=== PATIENT | female | born 1975 | race Caucasian/White ===

== ENCOUNTER → 2017-11-26 11:51 | Outpatient (CLI) | payer OTHER, SELFPAY ==
--- NOTE | 2017-11-26 | DI.MG.S_ITS ---
BILATERAL DIGITAL SCREENING MAMMOGRAM 3D/2D WITH CAD: 11/26/2017 CLINICAL: Baseline exam. Routine screening. Family history of breast cancer. No prior exams were available for comparison. The tissue of both breasts is heterogeneously dense. This may lower the sensitivity of mammography. Current study was also evaluated with a Computer Aided Detection (CAD) system. No significant masses, calcifications, or other findings are seen in either breast. IMPRESSION: NEGATIVE There is no mammographic evidence of malignancy. A 1 year screening mammogram is recommended. This exam was interpreted at Station ID: [id number]. NOTE: For mammograms, a report in lay terms will be sent to the patient. Approximately 15% of breast malignancies will not be visualized mammographically. In the management of a palpable breast mass, a negative mammogram must not discourage biopsy of a clinically suspicious lesion. Electronically Signed By: Regino carter/gary:11/26/2017 16:08:03 letter sent: Normal Exam ACR BI-RADS Category 1: Negative 3341F
== END ==
PROVIDERS: Family Provider Family Medicine; PCP Family Medicine; Visit Provider Family Medicine
DX: Z12.31 Encounter for screening mammogram for malignant neoplasm of breast (principal); Z80.3 Family history of malignant neoplasm of breast
CPT/HCPCS: 77063; 77067

== ENCOUNTER → 2018-12-03 07:39 | Outpatient (CLI) | payer OTHER, SELFPAY ==
--- NOTE | 2018-12-03 | DI.MG.S_ITS ---
BILATERAL DIGITAL SCREENING MAMMOGRAM 3D/2D WITH CAD: 12/03/2018 CLINICAL: Routine screening. Family history of breast cancer. Comparison is made to exam [facility] The tissue of both breasts is heterogeneously dense. This may lower the sensitivity of mammography. Current study was also evaluated with a Computer Aided Detection (CAD) system. No significant masses, calcifications, or other findings are seen in either breast. There has been no significant interval change. IMPRESSION: NEGATIVE There is no mammographic evidence of malignancy. A 1 year screening mammogram is recommended. This exam was interpreted at Station ID: [id number]. NOTE: For mammograms, a report in lay terms will be sent to the patient. Approximately 15% of breast malignancies will not be visualized mammographically. In the management of a palpable breast mass, a negative mammogram must not discourage biopsy of a clinically suspicious lesion. Electronically Signed By: Charli rosado/gary:12/03/2018 13:04:37 letter sent: Normal Exam ACR BI-RADS Category 1: Negative 3341F
== END ==
PROVIDERS: Family Provider Family Medicine; PCP Family Medicine; Visit Provider Family Medicine
DX: Z12.31 Encounter for screening mammogram for malignant neoplasm of breast (principal); Z80.3 Family history of malignant neoplasm of breast
CPT/HCPCS: 77063; 77067

== ENCOUNTER → 2019-02-17 16:35 | Outpatient (CLI) | payer OTHER, SELFPAY ==
--- NOTE | 2019-02-17 | DI.RAD.S_ITS ---
PROCEDURE: XR FOOT RT 2V INDICATIONS: RIGHT HEEL PAIN TECHNIQUE: 2 views of the foot were acquired. COMPARISON: [facility], , FOOT 3V LEFT, 10/24/2011, 9:56. FINDINGS: Bones: No fractures or dislocations. Unfused bipartite os navicular. Os perinei present. A small plantar calcaneal spur. No suspicious bony lesions. Soft tissues: No tibiotalar joint effusion. Achilles tendon appears normal. IMPRESSION: Small plantar calcaneal spur. Dictated by: Emily Peck M.D. on 02/17/2019 at 18:43 Approved by: Emily Peck M.D. on 02/17/2019 at 18:46
== END ==
PROVIDERS: Family Provider Family Medicine; PCP Family Medicine; Visit Provider Family Medicine
DX: M77.31 Calcaneal spur, right foot (principal)
CPT/HCPCS: 73620

== ENCOUNTER → 2020-01-05 14:46 | Outpatient (CLI) | payer OTHER, SELFPAY ==
--- NOTE | 2020-01-05 | DI.CT.S_ITS ---
PROCEDURE: CT CHEST WO CON INDICATIONS: PULMONARY NODULES ROUTINE SCREENING MAMMOGRAM TECHNIQUE: Noncontrast 5 mm thick sections acquired from the pulmonary apices to the posterior costophrenic angles. 1 mm lung window, 5 mm thick coronal and sagittal and 7 mm axial MIP reformats were then acquired. For radiation dose reduction, the following was used: automated exposure control, adjustment of mA and/or kV according to patient size. COMPARISON: [facility], , MM SCREENING MAMMO BI, 12/03/2018, 8:00. [facility], MM SCREENING MAMMO BI, 01/05/2020, 15:05. [facility], , MM SCREENING MAMMO BI, 11/26/2017, 12:22. Outside Facility, , CT THORAX WITH CONTRAST, 05/22/2018, 9:30. FINDINGS: Image quality: Excellent. Lungs and pleura: No acute air space opacities. Previously present small 4-6 mm nodules found within the right lower lung are again noted, and have not increased in size or number. No pleural effusions or pneumothorax. Central and peripheral airways are patent and normal in caliber. Mediastinum: Heart size is normal. No pericardial effusion. No mediastinal adenopathy by size criteria. Thoracic aorta and central pulmonary arteries are normal in size. Esophagus is normal in caliber. No hiatal hernia. Bones and chest wall: No suspicious bony lesions. No vertebral body compression fractures. No axillary or supraclavicular adenopathy by size criteria. Thyroid gland is not well seen by this noncontrast technique. Asymmetric left upper outer quadrant breast radiodensity has been previously present on CT scanning 05/22/18 and also on prior mammograms. A mammogram was obtained same day.. Abdomen: Visualized upper abdominal solid organs and bowel loops appear normal in the absence of contrast. IMPRESSION: 1. Scattered small benign appearing nodules within the right lower lung have not changed, no followup recommended. 2. Asymmetric left upper outer quadrant breast tissue has been previously present on CT scanning and mammographic imaging, and a mammogram was also obtained today. Please refer to report from that examination related to mammographic findings. Dictated by: Fabrizio Bunn M.D. on 01/05/2020 at 15:56 Approved by: Fabrizio Bunn M.D. on 01/05/2020 at 16:04
--- NOTE | 2020-01-05 | DI.MG.S_ITS ---
BILATERAL DIGITAL SCREENING MAMMOGRAM 3D/2D WITH CAD: 01/05/2020 CLINICAL: Routine screening. Family history of breast cancer. Comparison is made to exams dated: 12/03/2018 mammogram and 11/26/2017 mammogram - [facility]. The tissue of both breasts is heterogeneously dense. This may lower the sensitivity of mammography. Current study was also evaluated with a Computer Aided Detection (CAD) system. No significant masses, calcifications, or other findings are seen in either breast. There has been no significant interval change. IMPRESSION: NEGATIVE There is no mammographic evidence of malignancy. A 1 year screening mammogram is recommended. This exam was interpreted at Station ID: [id number]. NOTE: For mammograms, a report in lay terms will be sent to the patient. Approximately 15% of breast malignancies will not be visualized mammographically. In the management of a palpable breast mass, a negative mammogram must not discourage biopsy of a clinically suspicious lesion. Electronically Signed By: Charli rosado/gary:01/05/2020 16:37:52 letter sent: Normal Exam ACR BI-RADS Category 1: Negative 3341F
== END ==
PROVIDERS: Family Provider Family Medicine; PCP Family Medicine; Referring Provider Family Medicine; Visit Provider Family Medicine
DX: Z12.31 Encounter for screening mammogram for malignant neoplasm of breast (principal); Z80.3 Family history of malignant neoplasm of breast; R91.8 Other nonspecific abnormal finding of lung field
CPT/HCPCS: 71250; 77063; 77067

== ENCOUNTER → 2020-04-06 14:03 | Outpatient (CLI) | payer OTHER, SELFPAY ==
--- NOTE | 2020-04-06 | DI.CT.S_ITS ---
PROCEDURE: CT ABDOMEN PELVIS W CON INDICATIONS: UNSPECIFIED ABD PAIN TECHNIQUE: After the administration of oral and intravenous contrast, 5 mm thick sections acquired from the diaphragms to the symphysis. 5 mm thick coronal and sagittal reformats were performed. For radiation dose reduction, the following was used: automated exposure control, adjustment of mA and/or kV according to patient size. COMPARISON: [facility], CT, CT CHEST WO CON, 01/05/2020, 14:48. FINDINGS: Image quality: Excellent. ABDOMEN: Lung bases: Lung bases are clear. Heart size is normal. Solid organs: Liver is normal in size and enhancement. Gallbladder is unremarkable . Biliary system is non-dilated. Pancreas enhances normally. Spleen is normal in size and enhancement. No adrenal nodules. There are multiple regions of bilateral renal cortical scarring suggesting prior infarct or infection. No hydronephrosis. A 2 mm nonobstructing calculus is present in the right midpole. Peritoneum and bowel: Stomach, small bowel, and colon loops are normal in caliber and wall thickness. The appendix is thin walled and gas filled. No free fluid or air. Nodes and vessels: No retroperitoneal or mesenteric adenopathy. Aorta and inferior vena cava are normal in caliber. Miscellaneous: No ventral hernias. PELVIS: Genitourinary: Bladder wall thickness is normal. The uterus and right ovary are unremarkable. There is a 2.1 cm in diameter low-density left ovarian cystic lesion which is within physiologic limits in a premenopausal female. Miscellaneous: No inguinal hernias or adenopathy. Bones: No suspicious bony lesions. No vertebral body compression fractures. IMPRESSION: 1. No acute intra-abdominal findings. Normal appendix. 2. Bilateral renal scarring suggesting prior infarct or infection. Dictated by: Keira Mabry M.D. on 04/06/2020 at 16:31 Approved by: Keira Mabry M.D. on 04/06/2020 at 16:55
== END ==
PROVIDERS: Family Provider Family Medicine; PCP Family Medicine; Referring Provider Family Medicine; Visit Provider Family Medicine
DX: R10.9 Unspecified abdominal pain (principal)
CPT/HCPCS: 74177; Q9967

== ENCOUNTER 2020-08-03 14:30 | Outpatient (RCR) | payer OTHER, SELFPAY ==
--- NOTE | 2020-05-18 16:43 | PT.OIE ---
Current Diagnoses Unspecified abdominal pain (05/16/20) Visit Care Team Role Provider Type Song Espinal MD Attending Provider Physician Family Provider Primary Care Provider Referring Provider Specialty: Family Practice Address: [address] [place] [address] [place], [facility] Email: [email or web address] Physical Therapy Initial Evaluation PT-OP-A Visit Information Start: 05/16/20 16:11 Freq: Status: Active Protocol: Document 05/16/20 18:09 [facility] (Rec: 05/16/20 18:09 [facility] [id number]) Out-Patient Physical Therapy Visit Information Visit Information Visit Type Initial Evaluation Visit Start Time 16:00 Visit Stop Time 16:45 Total Visit Minutes 45 Visit Number 1 Evaluation Information Evaluation Date 05/16/20 PT-OP-B Current Condition Start: 05/16/20 16:11 Freq: Status: Active Protocol: Document 05/16/20 16:13 [facility] (Rec: 05/16/20 16:26 [facility] [id number]) Current Condition History of Current Condition Onset Date Two months ago Current Complaints Right sided pelvic and SI pain History of Current Condition Ary is a 44 year old female who started running at age 42. She started out with a 5 k but then began doing ultra marathons. A few months ago she started experiencing right sided SI joint pain. Pain can also be on the out side of her right hip. Symptoms are intermittent. Hx of right side plantar fasciatis, right side neck tightness and can have pain with cervical extension right. She was running 40-70 miles per week prior to her pain and now her average is usualy 30-40 miles per week. Works from home so sits in a chair, recently brought out her yoga pad during the day. She always feel her right quad right and sometimes notes pain into the right quadricep. PT-OP-C Subjective Start: 05/16/20 18:08 Freq: Status: Active Protocol: Document 05/16/20 16:00 [facility] (Rec: 05/18/20 16:37 [facility] [id number]) Patient Questionnaires Pelvic Pain and Urgency/Frequency Patient Symptom Scale Pelvic Pain Score 19 OP-PT Pain Assessment Pain Assessment Grid Paper Pain Assessment Grid Completed Yes Location right sided SI pain Pain Location Details right sided SI pain Intensity 6 Scale Used Numeric (0 - 10) Description Aching,Radiating Comments Pain Comments Pt notes pain begins in the right SI region but then wraps around anteriorly and down the front of her thigh as well asd referring pain downt he back of her leg to her calf PT-OP-F Manual Assessment Start: 05/16/20 18:08 Freq: Status: Active Protocol: Document 05/16/20 16:00 [facility] (Rec: 05/18/20 16:37 [facility] [id number]) Manual Assessments Soft Tissue Assessment Soft Tissue Mobility Assessment Right iliopsoas tightness and tightness into the right quadricpes, there is decreased muscle tone to palpation in the lumbar spine, atrophy of the multifidi Joint Mobility Assessment Joint Mobility Assessment + ASLR test while lifting the left leg, right iliacus outflared PT-OP-J Posture/Palpation/Skin Start: 05/16/20 18:08 Freq: Status: Active Protocol: Document 05/16/20 16:00 [facility] (Rec: 05/18/20 16:37 [facility] [id number]) Posture Evaluation Comments Posture Comments pt stands in a increased lordosis Palpation Assessment Location muscle atrophy of the lumbar multifidi Palpation Location lumbar multifidi Palpation Details muscle atrophy and boggyness of the tissue surrounding the lumbar spine B PT-OP-K Range of Motion Start: 05/18/20 16:38 Freq: Status: Active Protocol: Document 05/16/20 16:00 [facility] (Rec: 05/18/20 16:42 [facility] [id number]) Lumbar Spine Range of Motion Lumbar Spine Active Testing Position Standing Comments Limited lumbar ROM into right sidebending due to pain at the right SI joint PT-OP-L Special Tests Start: 05/18/20 16:38 Freq: Status: Active Protocol: Document 05/16/20 16:00 [facility] (Rec: 05/18/20 16:42 [facility] [id number]) Special Tests Lumbar Spine Special Tests Straight Leg Raise Test Results + Comments right side with some reporduction of nerve symptoms Raphael Test Results + Comments right side PT-OP-M Strength Start: 05/18/20 16:38 Freq: Status: Active Protocol: Document 05/16/20 16:00 [facility] (Rec: 05/18/20 16:42 [facility] [id number]) Trunk Strength Trunk Manual Muscle Testing Testing Position Supine Core Stabilization poor core stabilization with decreased ability to perform a transverse abdominal, pelvic floor, or multifidi contraction PT-OP-Q Treatments Start: 05/16/20 18:08 Freq: Status: Active Protocol: Document 05/16/20 16:00 [facility] (Rec: 05/18/20 16:37 [facility] [id number]) Therapeutic Exercises Supine Exercises single knee to chest Supine Exercise Name single knee to chest Reps/Minutes 1-2 Modified raphael stretch Supine Exercise Name Modified raphael stretch Side bilateral Reps/Minutes hold 30 sec-1 min, pt educated to stop if she had any c/o nerve pain Other Exercises quadruped rock backs Reps/Minutes x 10 PT-OP-T Assessment and Plan Start: 05/16/20 18:08 Freq: Status: Active Protocol: Document 05/16/20 16:00 [facility] (Rec: 05/18/20 16:37 [facility] [id number]) Physical Therapy Assessment Rehab Potential Rehabilitation Potential Excellent Evaluation Complexity Number of Personal Factors/Comorbidities 0 Number of Body Systems Impaired 1-2 Clinical Presentation at Evaluation Stable Impairments Impairments Activity Tolerance,Functional Mobility,Gait,Pain,Posture,ROM ,Soft Tissue Mobility,Strength Goals iliopsoas restrictions Impairment Decreased flexibility of the right ilipsoas and quadricep Short Term Goal (STG) Ary is educated on a flexiblity program for her hip to do following her runs and a pre run dynamic warm up. STG Duration 5 weeks Decreased core strength Impairment Decreased core strength for lumbar and SI stabilization Short Term Goal (STG) Ary is able to facilitate a transverse abdominal contraction and multifidi contraction and sustain for 5- 10 seconds STG Duration 4 weeks Snf Goal (LTG) Ary is able to tolerate a dynamic lumbar stabilization program for improved lumbar and SI stabilization LTG Duration 8 weeks One Impairment right sided SI pain rated 6/10 with intermittent radicular symptoms Snf Goal (LTG) Ary is educated on how to work on her core to stabilize her SI joint and low back and to reduce pain levels from 6/ 10 to 3-4/10 or better with decreased radicular symptoms LTG Duration 8 weeks Assessment Summary Assessment Ary presents to Physcial therapy today with symptoms of right SI pain and referred pain both anteriorly into her quadriceps and posteriorly down the back of her right leg . She has been running for two years and had increased her milage to a average of 50- 60 miles per week when she started getting pain. She has dropped back to a average of 30 hours per week. She doesn' t have pain during running but afterwards. She reports she doesn't tend to do a lot of stretching. She is very tight in her iliopsoas on the right and presents with a out flare of the right iliacus. 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 She also has a neural component to her pain and referred pain into the R quadricep was reproduced today with a iliopsoas stretch in raphael test position. SLR is also slightly positive on the right side. She is very weak in her core musculatre including her lumbar multifidi . To palpation on either side of the lumbar spine the tissueis atrophied and almost boggy in nature. It was difficult for her to facilitate a transverse abdominal contraction today. She also reports symptoms of pelvic pain with urgency to void and pain with intercourse . Treatment for Ary will be to stabilize her SI joint, reduce iliopsoas tightness and get her going on a good core program for home. Physical Therapy Plan Frequency and Duration Frequency of Treatment 2x/Week Duration of Treatment 8 Plan of Care Start Date 05/16/20 Plan of Care End Date 07/11/20 Therapeutic Interventions Therapeutic Interventions Home Exercise Program,Manual Therapy,Neuromuscular Re- education,Patient/Caregiver Education,Self-Care/Home Management,Soft Tissue Mobilization,Therapeutic Exercises Modalities Biofeedback Next Visit Focus/Plan Next Note Type Treatment Note Next Visit Plan Review stretches given at today's appointment and progress both pelvic floor and transverse abdominal stabilization exercises.
--- NOTE | 2020-05-18 16:43 | PT.OPPOC ---
Physical, Occupational & Speech Therapy At [facility] Current Diagnoses Unspecified abdominal pain (05/16/20) Visit Care Team Role Provider Type Song Espinal MD Attending Provider Physician Family Provider Primary Care Provider Referring Provider Specialty: Family Practice Address: [address] [place] [address], [address] Email: [email or web address] Plan Of Care PT-OP-T Assessment and Plan Start: 05/16/20 18:08 Freq: Status: Active Protocol: Document 05/16/20 16:00 [facility] (Rec: 05/18/20 16:37 [facility] [id number]) Physical Therapy Assessment Rehab Potential Rehabilitation Potential Excellent Evaluation Complexity Number of Personal Factors/Comorbidities 0 Number of Body Systems Impaired 1-2 Clinical Presentation at Evaluation Stable Impairments Impairments Activity Tolerance,Functional Mobility,Gait,Pain,Posture,ROM ,Soft Tissue Mobility,Strength Goals iliopsoas restrictions Impairment Decreased flexibility of the right ilipsoas and quadricep Short Term Goal (STG) Ary is educated on a flexibility program for her hip to do following her runs and a pre run dynamic warm up. STG Duration 5 weeks Decreased core strength Impairment Decreased core strength for lumbar and SI stabilization Short Term Goal (STG) Ary is able to facilitate a transverse abdominal contraction and multifidi contraction and sustain for 5- 10 seconds STG Duration 4 weeks Fdc Goal (LTG) Ary is able to tolerate a dynamic lumbar stabilization program for improved lumbar and SI stabilization LTG Duration 8 weeks One Impairment right sided SI pain rated 6/10 with intermittent radicular symptoms Fdc Goal (LTG) Ary is educated on how to work on her core to stabilize her SI joint and low back and to reduce pain levels from 6/ 10 to 3-4/10 or better with decreased radicular symptoms LTG Duration 8 weeks Assessment Summary Assessment Ary presents to Physical therapy today with symptoms of right SI pain and referred pain both anteriorly into her quadriceps and posteriorly down the back of her right leg . She has been running for two years and had increased her mileage to a average of 50- 60 miles per week when she started getting pain. She has dropped back to a average of 30 hours per week. She doesn't have pain during running but afterwards. She reports she doesn't tend to do a lot of stretching. She is very tight in her iliopsoas on the right and presents with a out flare of the right iliacus. 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 She also has a neural component to her pain and referred pain into the R quadricep was reproduced today with a iliopsoas stretch in ron test position. SLR is also slightly positive on the right side. She is very weak in her core musculatre including her lumbar multifidi . To palpation on either side of the lumbar spine the tissue is atrophied and almost boggy in nature. It was difficult for her to facilitate a transverse abdominal contraction today. She also reports symptoms of pelvic pain with urgency to void and pain with intercourse . Treatment for Ary will be to stabilize her SI joint, reduce iliopsoas tightness and get her going on a good core program for home. Physical Therapy Plan Frequency and Duration Frequency of Treatment 2x/Week Duration of Treatment 8 Plan of Care Start Date 05/16/20 Plan of Care End Date 07/11/20 Therapeutic Interventions Therapeutic Interventions Home Exercise Program,Manual Therapy,Neuromuscular Re- education,Patient/Caregiver Education,Self-Care/Home Management,Soft Tissue Mobilization,Therapeutic Exercises Modalities Biofeedback Next Visit Focus/Plan Next Note Type Treatment Note Next Visit Plan Review stretches given at today's appointment and progress both pelvic floor and transverse abdominal stabilization exercises. Plan of Care Dates Plan of Care Start Date 05/16/20 Plan of Care End Date 07/11/20 Electronically Signed by: Tsering Olmos, PT 05/18/20 [id number] Please Sign and Return: I have reviewed this Plan of Care and certify that the skilled therapy services above are required to meet the patient?s needs. Physician Signature Date Printed Name and Credentials Clinical Instructor Signature Printed Name and Credentials
--- NOTE | 2020-05-23 13:34 | PT.OTN ---
Current Diagnoses Unspecified abdominal pain (05/23/20) Physical Therapy Treatment Note PT-OP-A Visit Information Start: 05/16/20 16:11 Freq: Status: Active Protocol: Document 05/23/20 13:20 [facility] (Rec: 05/23/20 13:34 [facility] [id number]) Out-Patient Physical Therapy Visit Information Visit Information Visit Type Treatment Note Visit Start Time 11:15 Visit Stop Time 12:00 Total Visit Minutes 45 Visit Number 2 PT-OP-B Current Condition Start: 05/16/20 16:11 Freq: Status: Active Protocol: Document 05/16/20 16:13 [facility] (Rec: 05/16/20 16:26 [facility] [id number]) Current Condition History of Current Condition Onset Date Two months ago Current Complaints Right sided pelvic and SI pain History of Current Condition Ary is a 44 year old female who started running at age 42. She started out with a 5 k but then began doing ultra marathons. A few months ago she started experiencing right sided SI joint pain. Pain can also be on the out side of her right hip. Symptoms are intermittent. Hx of right side plantar fasciatis, right side neck tightness and can have pain with cervical extension right. She was running 40-70 miles per week prior to her pain and now her average is usualy 30-40 miles per week. Works from home so sits in a chair, recently brought out her yoga pad during the day. She always feel her right quad right and sometimes notes pain into the right quadricep. PT-OP-C Subjective Start: 05/16/20 18:08 Freq: Status: Active Protocol: Document 05/23/20 13:20 [facility] (Rec: 05/23/20 13:34 [facility] [id number]) OP-PT Subjective Patient Comments Patient Comments Ary reports she has been working on finding her transverse abdominus this week at home and feels she can find it a little easier. She is still feeling the pain into her right quad as she finds herself rubbing it often. PT-OP-F Manual Assessment Start: 05/16/20 18:08 Freq: Status: Active Protocol: Document 05/16/20 16:00 [facility] (Rec: 05/18/20 16:37 [facility] [id number]) Manual Assessments Soft Tissue Assessment Soft Tissue Mobility Assessment Right iliopsoas tightness and tightness into the right quadricpes, there is decreased muscle tone to palpation in the lumbar spine, atrophy of the multifidi Joint Mobility Assessment Joint Mobility Assessment + ASLR test while lifting the left leg, right iliacus outflared PT-OP-J Posture/Palpation/Skin Start: 05/16/20 18:08 Freq: Status: Active Protocol: Document 05/16/20 16:00 [facility] (Rec: 05/18/20 16:37 [facility] [id number]) Posture Evaluation Comments Posture Comments pt stands in a increased lordosis Palpation Assessment Location muscle atrophy of the lumbar multifidi Palpation Location lumbar multifidi Palpation Details muscle atrophy and boggyness of the tissue surrounding the lumbar spine B PT-OP-K Range of Motion Start: 05/18/20 16:38 Freq: Status: Active Protocol: Document 05/16/20 16:00 [facility] (Rec: 05/18/20 16:42 [facility] [id number]) Lumbar Spine Range of Motion Lumbar Spine Active Testing Position Standing Comments Limited lumbar ROM into right sidebending due to pain at the right SI joint PT-OP-L Special Tests Start: 05/18/20 16:38 Freq: Status: Active Protocol: Document 05/16/20 16:00 [facility] (Rec: 05/18/20 16:42 [facility] [id number]) Special Tests Lumbar Spine Special Tests Straight Leg Raise Test Results + Comments right side with some reporduction of nerve symptoms Raphael Test Results + Comments right side PT-OP-M Strength Start: 05/18/20 16:38 Freq: Status: Active Protocol: Document 05/16/20 16:00 [facility] (Rec: 05/18/20 16:42 [facility] [id number]) Trunk Strength Trunk Manual Muscle Testing Testing Position Supine Core Stabilization poor core stabilization with decreased ability to perform a transverse abdominal, pelvic floor, or multifidi contraction PT-OP-Q Treatments Start: 05/16/20 18:08 Freq: Status: Active Protocol: Document 05/23/20 13:20 [facility] (Rec: 05/23/20 13:34 [facility] [id number]) Therapeutic Exercises Supine Exercises happy baby Reps/Minutes hold 1-2 minutes bridges Supine Exercise Name bridges Reps/Minutes x 10 reps Comments segmental stabilization bent knee fall outs Reps/Minutes x 10 reps TA with heel slides Reps/Minutes x 10 reps TA with marches Supine Exercise Name TA with marches Reps/Minutes x 10 reps TA facilitation Reps/Minutes x 5 single knee to chest Supine Exercise Name single knee to chest Reps/Minutes 1-2 Other Exercises 1/2 kneeling iliopsoas stretch Other Exercise Name 1/2 kneeling iliopsoas stretch Comments cues to keep the pelvic tucked under TA sidebends Reps/Minutes x 5 reps each side quadruped TA Reps/Minutes x 5 quadruped rock backs Reps/Minutes x 10 Manual Therapy Treatment Soft Tissue Mobilization manual release of the right iliopsoas and quad Body Location right iliopsoas and right quad Comments worked in sidelying and in supine PT-OP-T Assessment and Plan Start: 05/16/20 18:08 Freq: Status: Active Protocol: Document 05/23/20 13:20 [facility] (Rec: 05/23/20 13:34 [facility] [id number]) Physical Therapy Plan Frequency and Duration Frequency of Treatment 2x/Week Duration of Treatment 8 Plan of Care Start Date 05/16/20 Plan of Care End Date 07/11/20 Therapeutic Interventions Therapeutic Interventions Home Exercise Program,Manual Therapy,Neuromuscular Re- education,Patient/Caregiver Education,Self-Care/Home Management,Soft Tissue Mobilization,Therapeutic Exercises Modalities Biofeedback Next Visit Focus/Plan Next Note Type Treatment Note Next Visit Plan may try posterior capsule hip manual glides next visit, continue to progress stabilization and opening up the right iliopsoas
--- NOTE | 2020-06-01 17:40 | PT.OTN ---
Current Diagnoses Unspecified abdominal pain (06/01/20) Physical Therapy Treatment Note PT-OP-A Visit Information Start: 05/16/20 16:11 Freq: Status: Active Protocol: Document 06/01/20 13:48 [facility] (Rec: 06/01/20 14:20 [facility] [id number]) Out-Patient Physical Therapy Visit Information Visit Information Visit Type Treatment Note Visit Start Time 13:45 Visit Stop Time 14:30 Total Visit Minutes 45 Visit Number 3 Evaluation Information Evaluation Date 05/16/20 PT-OP-B Current Condition Start: 05/16/20 16:11 Freq: Status: Active Protocol: Document 05/16/20 16:13 [facility] (Rec: 05/16/20 16:26 [facility] [id number]) Current Condition History of Current Condition Onset Date Two months ago Current Complaints Right sided pelvic and SI pain History of Current Condition Ary is a 44 year old female who started running at age 42. She started out with a 5 k but then began doing ultra marathons. A few months ago she started experiencing right sided SI joint pain. Pain can also be on the out side of her right hip. Symptoms are intermittent. Hx of right side plantar fasciatis, right side neck tightness and can have pain with cervical extension right. She was running 40-70 miles per week prior to her pain and now her average is usualy 30-40 miles per week. Works from home so sits in a chair, recently brought out her yoga pad during the day. She always feel her right quad right and sometimes notes pain into the right quadricep. PT-OP-C Subjective Start: 05/16/20 18:08 Freq: Status: Active Protocol: Document 06/01/20 13:48 [facility] (Rec: 06/01/20 14:20 [facility] [id number]) OP-PT Subjective Patient Comments Patient Comments Ary reports she has been working on her transverse abdominus this week. She has been doing more stretches after her run. She is still experiencing pain in the right right side of the pelvis. She hasn't felt as much of the leg pain in her anterior thigh this week PT-OP-F Manual Assessment Start: 05/16/20 18:08 Freq: Status: Active Protocol: Document 05/16/20 16:00 [facility] (Rec: 05/18/20 16:37 [facility] [id number]) Manual Assessments Soft Tissue Assessment Soft Tissue Mobility Assessment Right iliopsoas tightness and tightness into the right quadricpes, there is decreased muscle tone to palpation in the lumbar spine, atrophy of the multifidi Joint Mobility Assessment Joint Mobility Assessment + ASLR test while lifting the left leg, right iliacus outflared PT-OP-J Posture/Palpation/Skin Start: 05/16/20 18:08 Freq: Status: Active Protocol: Document 05/16/20 16:00 [facility] (Rec: 05/18/20 16:37 [facility] [id number]) Posture Evaluation Comments Posture Comments pt stands in a increased lordosis Palpation Assessment Location muscle atrophy of the lumbar multifidi Palpation Location lumbar multifidi Palpation Details muscle atrophy and boggyness of the tissue surrounding the lumbar spine B PT-OP-K Range of Motion Start: 05/18/20 16:38 Freq: Status: Active Protocol: Document 05/16/20 16:00 [facility] (Rec: 05/18/20 16:42 [facility] [id number]) Lumbar Spine Range of Motion Lumbar Spine Active Testing Position Standing Comments Limited lumbar ROM into right sidebending due to pain at the right SI joint PT-OP-L Special Tests Start: 05/18/20 16:38 Freq: Status: Active Protocol: Document 05/16/20 16:00 [facility] (Rec: 05/18/20 16:42 [facility] [id number]) Special Tests Lumbar Spine Special Tests Straight Leg Raise Test Results + Comments right side with some reporduction of nerve symptoms Raphael Test Results + Comments right side PT-OP-M Strength Start: 05/18/20 16:38 Freq: Status: Active Protocol: Document 05/16/20 16:00 [facility] (Rec: 05/18/20 16:42 [facility] [id number]) Trunk Strength Trunk Manual Muscle Testing Testing Position Supine Core Stabilization poor core stabilization with decreased ability to perform a transverse abdominal, pelvic floor, or multifidi contraction PT-OP-Q Treatments Start: 05/16/20 18:08 Freq: Status: Active Protocol: Document 06/01/20 17:05 [facility] (Rec: 06/01/20 17:31 [facility] [id number]) Therapeutic Exercises Supine Exercises TA with SLR Reps/Minutes x 10 reps bent knee fall outs Reps/Minutes x 10 reps TA with heel slides Reps/Minutes x 10 reps TA with marches Supine Exercise Name TA with marches Reps/Minutes x 10 reps single knee to chest Supine Exercise Name single knee to chest Reps/Minutes 1-2 Modified raphael stretch Supine Exercise Name full raphael stretch Side bilateral Comments Ary was able to tolerate a full stretch to her iliopsoas in supine Sidelying Exercises clam shells Sidelying Exercise Name sidelying clam shells Reps/Minutes 3 x 10 reps Standing Exercises standing single leg balance Standing Exercise Name standing single leg balance Reps/Minutes hold 30 seconds to 1 minute with gluteal activation Other Exercises 1/2 kneeling iliopsoas stretch Other Exercise Name 1/2 kneeling iliopsoas stretch Comments cues to keep the pelvic tucked under TA sidebends Reps/Minutes x 5 reps each side quadruped TA Reps/Minutes x 5 Manual Therapy Treatment Soft Tissue Mobilization manual release of the right iliopsoas and quad Body Location right iliopsoas and right quad Comments worked in sidelying and in supine Joint Mobilizations 1 Joint posterior hip capsule mobilizations Comments belt was used for MWM and for posterior hip capsule mobilizations PT-OP-T Assessment and Plan Start: 05/16/20 18:08 Freq: Status: Active Protocol: Document 06/01/20 13:48 [facility] (Rec: 06/01/20 14:20 [facility] [id number]) Physical Therapy Assessment Assessment Summary Assessment Posterior hip capsule mobilizations were performed today with good tolerance. Ary was able to tolerate the full raphael test stretch and well today and I progressed her to level 1 b lower abdominal progression Physical Therapy Plan Frequency and Duration Frequency of Treatment 2x/Week Duration of Treatment 8 Plan of Care Start Date 05/16/20 Plan of Care End Date 07/11/20 Therapeutic Interventions Therapeutic Interventions Home Exercise Program,Manual Therapy,Neuromuscular Re- education,Patient/Caregiver Education,Self-Care/Home Management,Soft Tissue Mobilization,Therapeutic Exercises Modalities Biofeedback Next Visit Focus/Plan Next Note Type Treatment Note Next Visit Plan assess how Ary felt following posterior hip capsule mobilizations, begin working on standing dynamic strengthening as she is shakey with Single leg stance
--- NOTE | 2020-06-08 17:33 | PT.OTN ---
Current Diagnoses Unspecified abdominal pain (06/08/20) Physical Therapy Treatment Note PT-OP-A Visit Information Start: 05/16/20 16:11 Freq: Status: Active Protocol: Document 06/08/20 16:52 [facility] (Rec: 06/08/20 17:32 [facility] [id number]) Out-Patient Physical Therapy Visit Information Visit Information Visit Type Treatment Note Visit Start Time 13:45 Visit Stop Time 14:30 Total Visit Minutes 45 Visit Number 4 PT-OP-B Current Condition Start: 05/16/20 16:11 Freq: Status: Active Protocol: Document 05/16/20 16:13 [facility] (Rec: 05/16/20 16:26 [facility] [id number]) Current Condition History of Current Condition Onset Date Two months ago Current Complaints Right sided pelvic and SI pain History of Current Condition Ary is a 44 year old female who started running at age 42. She started out with a 5 k but then began doing ultra marathons. A few months ago she started experiencing right sided SI joint pain. Pain can also be on the out side of her right hip. Symptoms are intermittent. Hx of right side plantar fasciatis, right side neck tightness and can have pain with cervical extension right. She was running 40-70 miles per week prior to her pain and now her average is usualy 30-40 miles per week. Works from home so sits in a chair, recently brought out her yoga pad during the day. She always feel her right quad right and sometimes notes pain into the right quadricep. PT-OP-C Subjective Start: 05/16/20 18:08 Freq: Status: Active Protocol: Document 06/08/20 16:52 [facility] (Rec: 06/08/20 17:32 [facility] [id number]) OP-PT Subjective Patient Comments Patient Comments Ary reports she has been doing all her stretches. She ran again this week a nd felt right anterior hip pain. She also felt sacral pain on the right with happy baby stretch PT-OP-F Manual Assessment Start: 05/16/20 18:08 Freq: Status: Active Protocol: Document 05/16/20 16:00 [facility] (Rec: 05/18/20 16:37 [facility] [id number]) Manual Assessments Soft Tissue Assessment Soft Tissue Mobility Assessment Right iliopsoas tightness and tightness into the right quadricpes, there is decreased muscle tone to palpation in the lumbar spine, atrophy of the multifidi Joint Mobility Assessment Joint Mobility Assessment + ASLR test while lifting the left leg, right iliacus outflared PT-OP-J Posture/Palpation/Skin Start: 05/16/20 18:08 Freq: Status: Active Protocol: Document 05/16/20 16:00 [facility] (Rec: 05/18/20 16:37 [facility] [id number]) Posture Evaluation Comments Posture Comments pt stands in a increased lordosis Palpation Assessment Location muscle atrophy of the lumbar multifidi Palpation Location lumbar multifidi Palpation Details muscle atrophy and boggyness of the tissue surrounding the lumbar spine B PT-OP-K Range of Motion Start: 05/18/20 16:38 Freq: Status: Active Protocol: Document 05/16/20 16:00 [facility] (Rec: 05/18/20 16:42 [facility] [id number]) Lumbar Spine Range of Motion Lumbar Spine Active Testing Position Standing Comments Limited lumbar ROM into right sidebending due to pain at the right SI joint PT-OP-L Special Tests Start: 05/18/20 16:38 Freq: Status: Active Protocol: Document 05/16/20 16:00 [facility] (Rec: 05/18/20 16:42 [facility] [id number]) Special Tests Lumbar Spine Special Tests Straight Leg Raise Test Results + Comments right side with some reporduction of nerve symptoms Raphael Test Results + Comments right side PT-OP-M Strength Start: 05/18/20 16:38 Freq: Status: Active Protocol: Document 05/16/20 16:00 [facility] (Rec: 05/18/20 16:42 [facility] [id number]) Trunk Strength Trunk Manual Muscle Testing Testing Position Supine Core Stabilization poor core stabilization with decreased ability to perform a transverse abdominal, pelvic floor, or multifidi contraction PT-OP-Q Treatments Start: 05/16/20 18:08 Freq: Status: Active Protocol: Document 06/08/20 16:52 [facility] (Rec: 06/08/20 17:32 [facility] [id number]) Cardio Equipment Treadmill Duration (Minutes) 5 Other run assessment, pt was video taped on [facility] to look at running mechanics Therapeutic Exercises Supine Exercises happy baby Reps/Minutes hold 1-2 minutes Comments this was modified today to avoid pain Standing Exercises standing single leg lunges Standing Exercise Name standing single leg lunges Comments with star pattern Other Exercises 1/2 kneeling iliopsoas stretch Other Exercise Name 1/2 kneeling iliopsoas stretch Comments cues to keep the pelvic tucked under Manual Therapy Treatment Soft Tissue Mobilization manual release of the right iliopsoas and quad Body Location right iliopsoas and right quad Comments worked in sidelying and in supine Joint Mobilizations 1 Joint posterior hip capsule mobilizations Comments belt was used for MWM and for posterior hip capsule mobilizations PT-OP-T Assessment and Plan Start: 05/16/20 18:08 Freq: Status: Active Protocol: Document 06/08/20 16:52 [facility] (Rec: 06/08/20 17:32 [facility] [id number]) Physical Therapy Assessment Assessment Summary Assessment gait analysis on the treadmill shows that the right hip drops with running. I talked to Ary about working on improving her lateral hip stability with single leg lunges and continue with her core strengthening. Ary wants to run a marathon this weekend so recheck in with her next visit on how she feels Physical Therapy Plan Next Visit Focus/Plan Next Note Type Treatment Note Next Visit Plan assess how Ary feels after her marathon this coming weekend. Continue with stabilization for the pelvis both with the inner core and gluteus medius musculature
--- NOTE | 2020-06-13 17:09 | PT.OTN ---
Current Diagnoses Unspecified abdominal pain (06/13/20) Physical Therapy Treatment Note PT-OP-A Visit Information Start: 05/16/20 16:11 Freq: Status: Active Protocol: Document 06/13/20 17:06 [facility] (Rec: 06/13/20 17:09 [facility] [id number]) Out-Patient Physical Therapy Visit Information Visit Information Visit Type Treatment Note Visit Start Time 13:45 Visit Stop Time 14:30 Total Visit Minutes 45 Visit Number 5 PT-OP-B Current Condition Start: 05/16/20 16:11 Freq: Status: Active Protocol: Document 05/16/20 16:13 [facility] (Rec: 05/16/20 16:26 [facility] [id number]) Current Condition History of Current Condition Onset Date Two months ago Current Complaints Right sided pelvic and SI pain History of Current Condition Ary is a 44 year old female who started running at age 42. She started out with a 5 k but then began doing ultra marathons. A few months ago she started experiencing right sided SI joint pain. Pain can also be on the out side of her right hip. Symptoms are intermittent. Hx of right side plantar fasciatis, right side neck tightness and can have pain with cervical extension right. She was running 40-70 miles per week prior to her pain and now her average is usualy 30-40 miles per week. Works from home so sits in a chair, recently brought out her yoga pad during the day. She always feel her right quad right and sometimes notes pain into the right quadricep. PT-OP-C Subjective Start: 05/16/20 18:08 Freq: Status: Active Protocol: Document 06/13/20 13:55 [facility] (Rec: 06/13/20 14:00 [facility] [id number]) OP-PT Subjective Patient Comments Patient Comments Still kind of hurts in the position of happy baby. SHe feels at work her pelvis hasn' t been as bad PT-OP-F Manual Assessment Start: 05/16/20 18:08 Freq: Status: Active Protocol: Document 05/16/20 16:00 [facility] (Rec: 05/18/20 16:37 [facility] [id number]) Manual Assessments Soft Tissue Assessment Soft Tissue Mobility Assessment Right iliopsoas tightness and tightness into the right quadricpes, there is decreased muscle tone to palpation in the lumbar spine, atrophy of the multifidi Joint Mobility Assessment Joint Mobility Assessment + ASLR test while lifting the left leg, right iliacus outflared PT-OP-J Posture/Palpation/Skin Start: 05/16/20 18:08 Freq: Status: Active Protocol: Document 05/16/20 16:00 [facility] (Rec: 05/18/20 16:37 [facility] [id number]) Posture Evaluation Comments Posture Comments pt stands in a increased lordosis Palpation Assessment Location muscle atrophy of the lumbar multifidi Palpation Location lumbar multifidi Palpation Details muscle atrophy and boggyness of the tissue surrounding the lumbar spine B PT-OP-K Range of Motion Start: 05/18/20 16:38 Freq: Status: Active Protocol: Document 05/16/20 16:00 [facility] (Rec: 05/18/20 16:42 [facility] [id number]) Lumbar Spine Range of Motion Lumbar Spine Active Testing Position Standing Comments Limited lumbar ROM into right sidebending due to pain at the right SI joint PT-OP-L Special Tests Start: 05/18/20 16:38 Freq: Status: Active Protocol: Document 05/16/20 16:00 [facility] (Rec: 05/18/20 16:42 [facility] [id number]) Special Tests Lumbar Spine Special Tests Straight Leg Raise Test Results + Comments right side with some reporduction of nerve symptoms Raphael Test Results + Comments right side PT-OP-M Strength Start: 05/18/20 16:38 Freq: Status: Active Protocol: Document 05/16/20 16:00 [facility] (Rec: 05/18/20 16:42 [facility] [id number]) Trunk Strength Trunk Manual Muscle Testing Testing Position Supine Core Stabilization poor core stabilization with decreased ability to perform a transverse abdominal, pelvic floor, or multifidi contraction PT-OP-Q Treatments Start: 05/16/20 18:08 Freq: Status: Active Protocol: Document 06/13/20 17:06 [facility] (Rec: 06/13/20 17:09 [facility] [id number]) Therapeutic Exercises Supine Exercises TA with heel slides Reps/Minutes x 10 reps TA with marches Supine Exercise Name TA with marches Reps/Minutes x 10 reps Sidelying Exercises clam shells Sidelying Exercise Name sidelying clam shells Reps/Minutes 3 x 10 reps Other Exercises side steps and monster walks with theraband Reps/Minutes x 4 min single leg squats Reps/Minutes x 10 each leg Comments tap posterior and side mini squats Reps/Minutes x 20 Manual Therapy Treatment Soft Tissue Mobilization manual release of the right iliopsoas and quad Body Location right iliopsoas and right quad Comments worked in sidelying and in supine Joint Mobilizations 1 Joint posterior hip capsule mobilizations Comments belt was used for MWM and for posterior hip capsule mobilizations PT-OP-T Assessment and Plan Start: 05/16/20 18:08 Freq: Status: Active Protocol: Document 06/13/20 17:06 [facility] (Rec: 06/13/20 17:09 [facility] [id number]) Physical Therapy Assessment Assessment Summary Assessment Ary did not end up doing her long run this weekend. She notes decreased pain with sitting now. We worked today and single leg squats and bilateral squats with seating the femoral head. Physical Therapy Plan Frequency and Duration Frequency of Treatment 2x/Week Duration of Treatment 8 Plan of Care Start Date 05/16/20 Plan of Care End Date 07/11/20 Next Visit Focus/Plan Next Note Type Treatment Note Next Visit Plan continue to work on lateral hip stabilizing exercises, trial of prone next visit
--- NOTE | 2020-06-21 10:18 | PT.OTN ---
Current Diagnoses Unspecified abdominal pain (06/20/20) Physical Therapy Treatment Note PT-OP-A Visit Information Start: 05/16/20 16:11 Freq: Status: Active Protocol: Document 06/20/20 10:12 [facility] (Rec: 06/21/20 10:18 [facility] [id number]) Out-Patient Physical Therapy Visit Information Visit Information Visit Type Treatment Note Visit Start Time 13:45 Visit Stop Time 14:30 Total Visit Minutes 45 Visit Number 6 PT-OP-B Current Condition Start: 05/16/20 16:11 Freq: Status: Active Protocol: Document 05/16/20 16:13 [facility] (Rec: 05/16/20 16:26 [facility] [id number]) Current Condition History of Current Condition Onset Date Two months ago Current Complaints Right sided pelvic and SI pain History of Current Condition Ary is a 44 year old female who started running at age 42. She started out with a 5 k but then began doing ultra marathons. A few months ago she started experiencing right sided SI joint pain. Pain can also be on the out side of her right hip. Symptoms are intermittent. Hx of right side plantar fasciatis, right side neck tightness and can have pain with cervical extension right. She was running 40-70 miles per week prior to her pain and now her average is usualy 30-40 miles per week. Works from home so sits in a chair, recently brought out her yoga pad during the day. She always feel her right quad right and sometimes notes pain into the right quadricep. PT-OP-C Subjective Start: 05/16/20 18:08 Freq: Status: Active Protocol: Document 06/20/20 10:12 [facility] (Rec: 06/21/20 10:18 [facility] [id number]) OP-PT Subjective Patient Comments Patient Comments Pt reports she did a 12 miles run and felt so much looser when running. No pain with running. She is feeling pain with sitting on the floor on the right side of ther SI joint and sacrum PT-OP-F Manual Assessment Start: 05/16/20 18:08 Freq: Status: Active Protocol: Document 05/16/20 16:00 [facility] (Rec: 05/18/20 16:37 [facility] [id number]) Manual Assessments Soft Tissue Assessment Soft Tissue Mobility Assessment Right iliopsoas tightness and tightness into the right quadricpes, there is decreased muscle tone to palpation in the lumbar spine, atrophy of the multifidi Joint Mobility Assessment Joint Mobility Assessment + ASLR test while lifting the left leg, right iliacus outflared PT-OP-J Posture/Palpation/Skin Start: 05/16/20 18:08 Freq: Status: Active Protocol: Document 05/16/20 16:00 [facility] (Rec: 05/18/20 16:37 [facility] [id number]) Posture Evaluation Comments Posture Comments pt stands in a increased lordosis Palpation Assessment Location muscle atrophy of the lumbar multifidi Palpation Location lumbar multifidi Palpation Details muscle atrophy and boggyness of the tissue surrounding the lumbar spine B PT-OP-K Range of Motion Start: 05/18/20 16:38 Freq: Status: Active Protocol: Document 05/16/20 16:00 [facility] (Rec: 05/18/20 16:42 [facility] [id number]) Lumbar Spine Range of Motion Lumbar Spine Active Testing Position Standing Comments Limited lumbar ROM into right sidebending due to pain at the right SI joint PT-OP-L Special Tests Start: 05/18/20 16:38 Freq: Status: Active Protocol: Document 05/16/20 16:00 [facility] (Rec: 05/18/20 16:42 [facility] [id number]) Special Tests Lumbar Spine Special Tests Straight Leg Raise Test Results + Comments right side with some reporduction of nerve symptoms Raphael Test Results + Comments right side PT-OP-M Strength Start: 05/18/20 16:38 Freq: Status: Active Protocol: Document 05/16/20 16:00 [facility] (Rec: 05/18/20 16:42 [facility] [id number]) Trunk Strength Trunk Manual Muscle Testing Testing Position Supine Core Stabilization poor core stabilization with decreased ability to perform a transverse abdominal, pelvic floor, or multifidi contraction PT-OP-Q Treatments Start: 05/16/20 18:08 Freq: Status: Active Protocol: Document 06/20/20 10:12 [facility] (Rec: 06/21/20 10:18 [facility] [id number]) Therapeutic Exercises Supine Exercises adductor stretch Comments supine with strap piriformis stretch Supine Exercise Name piriformis stretch TA with SLR Reps/Minutes x 10 reps TA with heel slides Reps/Minutes x 10 reps TA with marches Supine Exercise Name TA with marches Reps/Minutes x 10 reps Modified raphael stretch Supine Exercise Name full raphael stretch Side bilateral Comments Ary was able to tolerate a full stretch to her iliopsoas in supine Sidelying Exercises clam shells Sidelying Exercise Name sidelying clam shells Reps/Minutes 3 x 10 reps Manual Therapy Treatment Soft Tissue Mobilization manual release of the right iliopsoas and quad Body Location right iliopsoas and right quad Comments worked in sidelying and in supine Joint Mobilizations 1 Joint posterior hip capsule mobilizations Comments belt was used for MWM and for posterior hip capsule mobilizations Manual Techniques MET right posterior rotation Type MET right posterior rotation Comments good tolerance PT-OP-T Assessment and Plan Start: 05/16/20 18:08 Freq: Status: Active Protocol: Document 06/20/20 10:12 [facility] (Rec: 06/21/20 10:18 [facility] [id number]) Physical Therapy Assessment Assessment Summary Assessment Ary is showing improved stabilization. We added in piriformis and adductor stretches today as she is significantly tighter on the right side for both of these. This may be contributing to sacral torsion. She was also educated in self release of the piriformis with tennis balls for home Physical Therapy Plan Frequency and Duration Frequency of Treatment 2x/Week Duration of Treatment 8 Plan of Care Start Date 05/16/20 Plan of Care End Date 07/11/20 Next Visit Focus/Plan Next Note Type Treatment Note Next Visit Plan reassess sitting pain, sacral position, and streches include miracle ball release for the piriformis
--- NOTE | 2020-08-03 15:12 | PT.OTN ---
Current Diagnoses Unspecified abdominal pain (08/03/20) Physical Therapy Treatment Note PT-OP-A Visit Information Start: 05/16/20 16:11 Freq: Status: Active Protocol: Document 08/03/20 14:41 [facility] (Rec: 08/03/20 15:04 [facility] [id number]) Out-Patient Physical Therapy Visit Information Visit Information Visit Type Progress Note Visit Start Time 14:30 Visit Stop Time 15:00 Total Visit Minutes 30 Visit Number 7 PT-OP-B Current Condition Start: 05/16/20 16:11 Freq: Status: Active Protocol: Document 05/16/20 16:13 [facility] (Rec: 05/16/20 16:26 [facility] [id number]) Current Condition History of Current Condition Onset Date Two months ago Current Complaints Right sided pelvic and SI pain History of Current Condition Ary is a 44 year old female who started running at age 42. She started out with a 5 k but then began doing ultra marathons. A few months ago she started experiencing right sided SI joint pain. Pain can also be on the out side of her right hip. Symptoms are intermittent. Hx of right side plantar fasciatis, right side neck tightness and can have pain with cervical extension right. She was running 40-70 miles per week prior to her pain and now her average is usualy 30-40 miles per week. Works from home so sits in a chair, recently brought out her yoga pad during the day. She always feel her right quad right and sometimes notes pain into the right quadricep. PT-OP-C Subjective Start: 05/16/20 18:08 Freq: Status: Active Protocol: Document 08/03/20 14:37 [facility] (Rec: 08/03/20 14:41 [facility] [id number]) OP-PT Subjective Patient Comments Patient Comments Pt reports the piriformis stretch has realy helped. Got a stand up desk for work. Averaging 30 miles per week. PT-OP-F Manual Assessment Start: 05/16/20 18:08 Freq: Status: Active Protocol: Document 05/16/20 16:00 [facility] (Rec: 05/18/20 16:37 [facility] [id number]) Manual Assessments Soft Tissue Assessment Soft Tissue Mobility Assessment Right iliopsoas tightness and tightness into the right quadricpes, there is decreased muscle tone to palpation in the lumbar spine, atrophy of the multifidi Joint Mobility Assessment Joint Mobility Assessment + ASLR test while lifting the left leg, right iliacus outflared PT-OP-J Posture/Palpation/Skin Start: 05/16/20 18:08 Freq: Status: Active Protocol: Document 05/16/20 16:00 [facility] (Rec: 05/18/20 16:37 [facility] [id number]) Posture Evaluation Comments Posture Comments pt stands in a increased lordosis Palpation Assessment Location muscle atrophy of the lumbar multifidi Palpation Location lumbar multifidi Palpation Details muscle atrophy and boggyness of the tissue surrounding the lumbar spine B PT-OP-K Range of Motion Start: 05/18/20 16:38 Freq: Status: Active Protocol: Document 05/16/20 16:00 [facility] (Rec: 05/18/20 16:42 [facility] [id number]) Lumbar Spine Range of Motion Lumbar Spine Active Testing Position Standing Comments Limited lumbar ROM into right sidebending due to pain at the right SI joint PT-OP-L Special Tests Start: 05/18/20 16:38 Freq: Status: Active Protocol: Document 05/16/20 16:00 [facility] (Rec: 05/18/20 16:42 [facility] [id number]) Special Tests Lumbar Spine Special Tests Straight Leg Raise Test Results + Comments right side with some reporduction of nerve symptoms Raphael Test Results + Comments right side PT-OP-M Strength Start: 05/18/20 16:38 Freq: Status: Active Protocol: Document 05/16/20 16:00 [facility] (Rec: 05/18/20 16:42 [facility] [id number]) Trunk Strength Trunk Manual Muscle Testing Testing Position Supine Core Stabilization poor core stabilization with decreased ability to perform a transverse abdominal, pelvic floor, or multifidi contraction PT-OP-Q Treatments Start: 05/16/20 18:08 Freq: Status: Active Protocol: Document 08/03/20 15:05 [facility] (Rec: 08/03/20 15:07 [facility] [id number]) Therapeutic Exercises Supine Exercises piriformis stretch Supine Exercise Name piriformis stretch TA with marches Supine Exercise Name TA with marches Reps/Minutes x 10 reps Modified raphael stretch Supine Exercise Name full raphael stretch Side bilateral Comments Ary was able to tolerate a full stretch to her iliopsoas in supine Sidelying Exercises clam shells Sidelying Exercise Name sidelying clam shells Reps/Minutes 3 x 10 reps Manual Therapy Treatment Manual Techniques Manual reevaluation of hip ROM, strength, core stability Type manual re-evaluation of hip ROM, strength, core stability. PT-OP-T Assessment and Plan Start: 05/16/20 18:08 Freq: Status: Active Protocol: Document 08/03/20 14:41 [facility] (Rec: 08/03/20 15:04 [facility] [id number]) Physical Therapy Assessment Goals iliopsoas restrictions Impairment Decreased flexibility of the right ilipsoas and quadriceps Short Term Goal (STG) Ary is educated on a flexibility program for her hip to do following her runs and a pre run dynamic warm up. GOAL MET STG Duration 5 weeks Decreased core strength Impairment Decreased core strength for lumbar and SI stabilization Short Term Goal (STG) Ary is able to facilitate a transverse abdominal contraction and multifidi contraction and sustain for 5- 10 seconds GOAL MET STG Duration 4 weeks Irrigation Foreman Goal (LTG) Ary is able to tolerate a dynamic lumbar stabilization program for improved lumbar and SI stabilization GOAL MET LTG Duration 8 weeks One Impairment right sided SI pain rated 6/10 with intermittent radicular symptoms Group Home Goal (LTG) Ary is educated on how to work on her core to stabilize her SI joint and low back and to reduce pain levels from 6/ 10 to 3-4/10 or better with decreased radicular symptoms No complaints of radicular pain now LTG Duration 8 weeks Assessment Summary Assessment Ary returns to PT today after working on her own since Jun 20. She reports the stretches and stabilization exercises have really helped her and she is doing much better overall. She is not feeling the pain with running. She feels ready to work independently on her home program. Physical Therapy Plan Discharge Physical Therapy Discharge Reasons Goals Met
--- NOTE | 2020-08-03 15:14 | PT.OPPOC ---
Physical, Occupational & Speech Therapy At [facility] Current Diagnoses Unspecified abdominal pain (08/03/20) Visit Care Team Role Provider Type Song Espinal MD Attending Provider Physician Family Provider Primary Care Provider Referring Provider Specialty: Family Practice Address: [address] [place] [address], [id number] Email: [email or web address] Plan Of Care PT-OP-T Assessment and Plan Start: 05/16/20 18:08 Freq: Status: Active Protocol: Document 08/03/20 14:41 [facility] (Rec: 08/03/20 15:04 [facility] [id number]) Physical Therapy Assessment Goals iliopsoas restrictions Impairment Decreased flexibility of the right iliopsoas and quadriceps Short Term Goal (STG) Ary is educated on a flexibility program for her hip to do following her runs and a pre run dynamic warm up. GOAL MET STG Duration 5 weeks Decreased core strength Impairment Decreased core strength for lumbar and SI stabilization Short Term Goal (STG) Ary is able to facilitate a transverse abdominal contraction and multifidi contraction and sustain for 5- 10 seconds GOAL MET STG Duration 4 weeks Hack Saw Operator Goal (LTG) Ary is able to tolerate a dynamic lumbar stabilization program for improved lumbar and SI stabilization GOAL MET LTG Duration 8 weeks One Impairment right sided SI pain rated 6/10 with intermittent radicular symptoms Shelter Goal (LTG) Ary is educated on how to work on her core to stabilize her SI joint and low back and to reduce pain levels from 6/ 10 to 3-4/10 or better with decreased radicular symptoms No complaints of radicular pain now LTG Duration 8 weeks Assessment Summary Assessment Ary returns to PT today after working on her own since Jun 20. She reports the stretches and stabilization exercises have really helped her and she is doing much better overall. She is not feeling the pain with running. She feels ready to work independently on her home program. Physical Therapy Plan Frequency and Duration Frequency of Treatment 1x/Week Duration of Treatment 1 Plan of Care Start Date 07/11/20 Plan of Care End Date 08/03/20 Therapeutic Interventions Therapeutic Interventions Home Exercise Program,Manual Therapy,Neuromuscular Re- education,Patient/Caregiver Education,Self-Care/Home Management,Soft Tissue Mobilization,Therapeutic Exercises Modalities Biofeedback Discharge Physical Therapy Discharge Reasons Goals Met Plan of Care Dates Plan of Care Start Date 07/11/20 Plan of Care End Date 08/03/20 Electronically Signed by: Tsering Olmos, PT 08/03/20 1818 Please Sign and Return: I have reviewed this Plan of Care and certify that the skilled therapy services above are required to meet the patient?s needs. Physician Signature Date Printed Name and Credentials Clinical Instructor Signature Printed Name and Credentials
--- NOTE | 2020-08-03 15:15 | PT.OPPN ---
Current Diagnoses Unspecified abdominal pain (08/03/20) Physical Therapy Progress Note PT-OP-A Visit Information Start: 05/16/20 16:11 Freq: Status: Active Protocol: Document 08/03/20 14:41 [facility] (Rec: 08/03/20 15:04 [facility] [id number]) Out-Patient Physical Therapy Visit Information Visit Information Visit Type Progress Note Visit Start Time 14:30 Visit Stop Time 15:00 Total Visit Minutes 30 Visit Number 7 PT-OP-B Current Condition Start: 05/16/20 16:11 Freq: Status: Active Protocol: Document 05/16/20 16:13 [facility] (Rec: 05/16/20 16:26 [facility] [id number]) Current Condition History of Current Condition Onset Date Two months ago Current Complaints Right sided pelvic and SI pain History of Current Condition Ary is a 44 year old female who started running at age 42. She started out with a 5 k but then began doing ultra marathons. A few months ago she started experiencing right sided SI joint pain. Pain can also be on the out side of her right hip. Symptoms are intermittent. Hx of right side plantar fasciatis, right side neck tightness and can have pain with cervical extension right. She was running 40-70 miles per week prior to her pain and now her average is usualy 30-40 miles per week. Works from home so sits in a chair, recently brought out her yoga pad during the day. She always feel her right quad right and sometimes notes pain into the right quadricep. PT-OP-C Subjective Start: 05/16/20 18:08 Freq: Status: Active Protocol: Document 08/03/20 14:37 [facility] (Rec: 08/03/20 14:41 [facility] [id number]) OP-PT Subjective Patient Comments Patient Comments Pt reports the piriformis stretch has realy helped. Got a stand up desk for work. Averaging 30 miles per week. PT-OP-F Manual Assessment Start: 05/16/20 18:08 Freq: Status: Active Protocol: Document 05/16/20 16:00 [facility] (Rec: 05/18/20 16:37 [facility] [id number]) Manual Assessments Soft Tissue Assessment Soft Tissue Mobility Assessment Right iliopsoas tightness and tightness into the right quadricpes, there is decreased muscle tone to palpation in the lumbar spine, atrophy of the multifidi Joint Mobility Assessment Joint Mobility Assessment + ASLR test while lifting the left leg, right iliacus outflared PT-OP-J Posture/Palpation/Skin Start: 05/16/20 18:08 Freq: Status: Active Protocol: Document 05/16/20 16:00 [facility] (Rec: 05/18/20 16:37 [facility] [id number]) Posture Evaluation Comments Posture Comments pt stands in a increased lordosis Palpation Assessment Location muscle atrophy of the lumbar multifidi Palpation Location lumbar multifidi Palpation Details muscle atrophy and boggyness of the tissue surrounding the lumbar spine B PT-OP-K Range of Motion Start: 05/18/20 16:38 Freq: Status: Active Protocol: Document 05/16/20 16:00 [facility] (Rec: 05/18/20 16:42 [facility] [id number]) Lumbar Spine Range of Motion Lumbar Spine Active Testing Position Standing Comments Limited lumbar ROM into right sidebending due to pain at the right SI joint PT-OP-L Special Tests Start: 05/18/20 16:38 Freq: Status: Active Protocol: Document 05/16/20 16:00 [facility] (Rec: 05/18/20 16:42 [facility] [id number]) Special Tests Lumbar Spine Special Tests Straight Leg Raise Test Results + Comments right side with some reporduction of nerve symptoms Raphael Test Results + Comments right side PT-OP-M Strength Start: 05/18/20 16:38 Freq: Status: Active Protocol: Document 05/16/20 16:00 [facility] (Rec: 05/18/20 16:42 [facility] [id number]) Trunk Strength Trunk Manual Muscle Testing Testing Position Supine Core Stabilization poor core stabilization with decreased ability to perform a transverse abdominal, pelvic floor, or multifidi contraction PT-OP-T Assessment and Plan Start: 05/16/20 18:08 Freq: Status: Active Protocol: Document 08/03/20 14:41 [facility] (Rec: 08/03/20 15:04 [facility] [id number]) Physical Therapy Assessment Goals iliopsoas restrictions Impairment Decreased flexibility of the right ilipsoas and quadricep Short Term Goal (STG) Ary is educated on a flexiblity program for her hip to do following her runs and a pre run dynamic warm up. GOAL MET STG Duration 5 weeks Decreased core strength Impairment Decreased core strength for lumbar and SI stabilization Short Term Goal (STG) Ary is able to facilitate a transverse abdominal contraction and multifidi contraction and sustain for 5- 10 seconds GOAL MET STG Duration 4 weeks Snf Goal (LTG) Ary is able to tolerate a dynamic lumbar stabilization program for improved lumbar and SI stabilization GOAL MET LTG Duration 8 weeks One Impairment right sided SI pain rated 6/10 with intermittent radicular symptoms Snf Goal (LTG) Ary is educated on how to work on her core to stabilize her SI joint and low back and to reduce pain levels from 6/ 10 to 3-4/10 or better with decreased radicular symptoms No complaints of radicular pain now LTG Duration 8 weeks Assessment Summary Assessment Ary returns to PT today after working on her own since Jun 20. She reports the stretches and stabilization exercises have really helped her and she is doing much better overall. She is not feeling the pain with running. She feels ready to work independently on her home program. Physical Therapy Plan Frequency and Duration Frequency of Treatment 1x/Week Duration of Treatment 1 Plan of Care Start Date 07/11/20 Plan of Care End Date 08/03/20 Therapeutic Interventions Therapeutic Interventions Home Exercise Program,Manual Therapy,Neuromuscular Re- education,Patient/Caregiver Education,Self-Care/Home Management,Soft Tissue Mobilization,Therapeutic Exercises Modalities Biofeedback Discharge Physical Therapy Discharge Reasons Goals Met
--- NOTE | 2020-10-11 10:21 | PT.OPDS ---
Current Diagnoses Unspecified abdominal pain (08/03/20) Visit Care Team Role Provider Type Song Espinal MD Attending Provider Physician Family Provider Primary Care Provider Referring Provider Specialty: Family Practice Address: [address] [place] [address], [facility] [place], [facility] Email: [email or web address] Visit Number Visit Number 7 Discharge Summary PT-OP-B Current Condition Start: 05/16/20 16:11 Freq: Status: Active Protocol: Document 05/16/20 16:13 [facility] (Rec: 05/16/20 16:26 [facility] [id number]) Current Condition History of Current Condition Onset Date Two months ago Current Complaints Right sided pelvic and SI pain History of Current Condition Ary is a 44 year old female who started running at age 42. She started out with a 5 k but then began doing ultra marathons. A few months ago she started experiencing right sided SI joint pain. Pain can also be on the out side of her right hip. Symptoms are intermittent. Hx of right side plantar fasciatis, right side neck tightness and can have pain with cervical extension right. She was running 40-70 miles per week prior to her pain and now her average is usualy 30-40 miles per week. Works from home so sits in a chair, recently brought out her yoga pad during the day. She always feel her right quad right and sometimes notes pain into the right quadricep. PT-OP-C Subjective Start: 05/16/20 18:08 Freq: Status: Active Protocol: Document 08/03/20 14:37 [facility] (Rec: 08/03/20 14:41 [facility] [id number]) OP-PT Subjective Patient Comments Patient Comments Pt reports the piriformis stretch has realy helped. Got a stand up desk for work. Averaging 30 miles per week. PT-OP-F Manual Assessment Start: 05/16/20 18:08 Freq: Status: Active Protocol: Document 05/16/20 16:00 [facility] (Rec: 05/18/20 16:37 [facility] [id number]) Manual Assessments Soft Tissue Assessment Soft Tissue Mobility Assessment Right iliopsoas tightness and tightness into the right quadricpes, there is decreased muscle tone to palpation in the lumbar spine, atrophy of the multifidi Joint Mobility Assessment Joint Mobility Assessment + ASLR test while lifting the left leg, right iliacus outflared PT-OP-J Posture/Palpation/Skin Start: 05/16/20 18:08 Freq: Status: Active Protocol: Document 05/16/20 16:00 [facility] (Rec: 05/18/20 16:37 [facility] [id number]) Posture Evaluation Comments Posture Comments pt stands in a increased lordosis Palpation Assessment Location muscle atrophy of the lumbar multifidi Palpation Location lumbar multifidi Palpation Details muscle atrophy and boggyness of the tissue surrounding the lumbar spine B PT-OP-K Range of Motion Start: 05/18/20 16:38 Freq: Status: Active Protocol: Document 05/16/20 16:00 [facility] (Rec: 05/18/20 16:42 [facility] [id number]) Lumbar Spine Range of Motion Lumbar Spine Active Testing Position Standing Comments Limited lumbar ROM into right sidebending due to pain at the right SI joint PT-OP-L Special Tests Start: 05/18/20 16:38 Freq: Status: Active Protocol: Document 05/16/20 16:00 [facility] (Rec: 05/18/20 16:42 [facility] [id number]) Special Tests Lumbar Spine Special Tests Straight Leg Raise Test Results + Comments right side with some reporduction of nerve symptoms Raphael Test Results + Comments right side PT-OP-M Strength Start: 05/18/20 16:38 Freq: Status: Active Protocol: Document 05/16/20 16:00 [facility] (Rec: 05/18/20 16:42 [facility] [id number]) Trunk Strength Trunk Manual Muscle Testing Testing Position Supine Core Stabilization poor core stabilization with decreased ability to perform a transverse abdominal, pelvic floor, or multifidi contraction PT-OP-T Assessment and Plan Start: 05/16/20 18:08 Freq: Status: Active Protocol: Document 08/03/20 14:41 [facility] (Rec: 08/03/20 15:04 [facility] [id number]) Physical Therapy Assessment Goals iliopsoas restrictions Impairment Decreased flexibility of the right ilipsoas and quadricep Short Term Goal (STG) Ary is educated on a flexiblity program for her hip to do following her runs and a pre run dynamic warm up. GOAL MET STG Duration 5 weeks Decreased core strength Impairment Decreased core strength for lumbar and SI stabilization Short Term Goal (STG) Ary is able to facilitate a transverse abdominal contraction and multifidi contraction and sustain for 5- 10 seconds GOAL MET STG Duration 4 weeks Ip Counsel Goal (LTG) Ary is able to tolerate a dynamic lumbar stabilization program for improved lumbar and SI stabilization GOAL MET LTG Duration 8 weeks One Impairment right sided SI pain rated 6/10 with intermittent radicular symptoms Correction Goal (LTG) Ary is educated on how to work on her core to stabilize her SI joint and low back and to reduce pain levels from 6/ 10 to 3-4/10 or better with decreased radicular symptoms No complaints of radicular pain now LTG Duration 8 weeks Assessment Summary Assessment Ary returns to PT today after working on her own since Jun 20. She reports the stretches and stabilization exercises have really helped her and she is doing much better overall. She is not feeling the pain with running. She feels ready to work independently on her home program. Physical Therapy Plan Frequency and Duration Frequency of Treatment 1x/Week Duration of Treatment 1 Plan of Care Start Date 07/11/20 Plan of Care End Date 08/03/20 Therapeutic Interventions Therapeutic Interventions Home Exercise Program,Manual Therapy,Neuromuscular Re- education,Patient/Caregiver Education,Self-Care/Home Management,Soft Tissue Mobilization,Therapeutic Exercises Modalities Biofeedback Discharge Physical Therapy Discharge Reasons Goals Met
== END 2020-10-16 10:38 ==
LOC: PHYS 14:30
PROVIDERS: Family Provider Family Medicine; PCP Family Medicine; Referring Provider Family Medicine; Visit Provider Family Medicine
DX: R10.9 Unspecified abdominal pain (principal)
CPT/HCPCS: 97110; 97140; 97161; 97530

== ENCOUNTER → 2021-03-07 16:44 | Outpatient (CLI) | payer OTHER, SELFPAY ==
--- NOTE | 2021-03-07 | DI.CT.S_ITS ---
PROCEDURE: CT ABDOMEN PELVIS W CON INDICATIONS: Right lower quadrant pain TECHNIQUE: After the administration of intravenous contrast, axial sections acquired from the lung bases to the pubic symphysis. Coronal and sagittal reformats were performed. For radiation dose reduction, the following was used: automated exposure control, adjustment of mA and/or kV according to patient size. COMPARISON: [facility], CT, CT ABDOMEN PELVIS W CON, 04/06/2020, 14:52. FINDINGS: Image quality: Excellent. Lung bases: Unremarkable. Heart: No significant findings. ABDOMEN: Liver: Liver is enlarged with mild steatosis. Gallbladder: The gallbladder is within normal limits. Biliary ducts: Unremarkable. Pancreas: Unremarkable. Spleen: Unremarkable. Adrenal Glands: Unremarkable. Kidneys and Ureters: No obstruction. There is incidental note of a retroaortic left renal vein. Stomach and Bowel: Stomach, small bowel loops, and colon are unremarkable. Appendix is normal. Peritoneum: No abnormal intraperitoneal fluid. No free air. Ventral Wall: No hernias. Abdominal Nodes: No retroperitoneal or mesenteric adenopathy by size criteria. Vessels: Aorta and inferior vena cava are normal in size. PELVIS: Pelvic Organs: There is a rim enhancing focus with surrounding fluid in the right adnexa measuring approximately 2.0 cm. Bladder: Unremarkable. Pelvic Nodes: No enlarged lymph nodes. Miscellaneous: No hernias are seen. Bones: Unremarkable. IMPRESSION: 1. Enhancing focus within the right adnexa region with surrounding fluid most consistent with partially ruptured/involuting hemorrhagic cyst. 2. Appendix is normal. The above findings were called to Dr. Song Espinal on 03/07/2021 at 6:20 p.m.. Dictated by: Leola Martínez M.D. on 03/07/2021 at 18:17 Approved by: Leola Martínez M.D. on 03/07/2021 at 18:22
== END ==
PROVIDERS: Family Provider Family Medicine; PCP Family Medicine; Referring Provider Family Medicine; Visit Provider Family Medicine
DX: R10.31 Right lower quadrant pain (principal); K76.0 Fatty (change of) liver, not elsewhere classified
CPT/HCPCS: 74177

== ENCOUNTER → 2021-03-12 14:10 | Outpatient (CLI) | payer OTHER, SELFPAY ==
--- NOTE | 2021-03-12 | DI.MG.S_ITS ---
BILATERAL DIGITAL SCREENING MAMMOGRAM 3D/2D WITH CAD: 03/12/2021 CLINICAL: Routine screening. Family history of breast cancer. Comparison is made to exams dated: 01/05/2020 mammogram, 12/03/2018 mammogram, and 11/26/2017 mammogram - [facility]. The tissue of both breasts is heterogeneously dense. This may lower the sensitivity of mammography. Current study was also evaluated with a Computer Aided Detection (CAD) system. There is a stable benign focal asymmetry in the left breast. No significant masses, calcifications, or other findings are seen in either breast. There has been no significant interval change. IMPRESSION: BENIGN There is no mammographic evidence of malignancy. A 1 year screening mammogram is recommended. This exam was interpreted at Station ID: [id number]. NOTE: For mammograms, a report in lay terms will be sent to the patient. Approximately 15% of breast malignancies will not be visualized mammographically. In the management of a palpable breast mass, a negative mammogram must not discourage biopsy of a clinically suspicious lesion. Electronically Signed By: Devaughn Romero acr/gary:03/12/2021 17:38:58 letter sent: Normal Exam ACR BI-RADS Category 2: Benign Finding(s) [id number]
== END ==
PROVIDERS: Family Provider Family Medicine; PCP Family Medicine; Referring Provider Family Medicine; Visit Provider Family Medicine
DX: Z12.31 Encounter for screening mammogram for malignant neoplasm of breast (principal); Z80.3 Family history of malignant neoplasm of breast
CPT/HCPCS: 77063; 77067

== ENCOUNTER → 2022-04-23 09:29 | Outpatient (CLI) | payer OTHER, SELFPAY ==
--- NOTE | 2022-04-23 | DI.RAD.S_ITS ---
PROCEDURE: XR LUMBAR SPINE 2-3V INDICATIONS: Pain, unspecified TECHNIQUE: 3 views of the lumbar spine were acquired. COMPARISON: None. FINDINGS: Bones: 5 shi-zfw-zlpbglx vertebrae are present. There is normal bony alignment. Very mild degenerative endplate changes are noted at L3-4 and L4-5 levels. No vertebral body compression fractures. No suspicious bony lesions. Soft tissues: Overlying bowel gas pattern is normal. No suspicious soft tissue calcifications. IMPRESSION: No acute compression fracture or spondylolisthesis. Very mild degenerative endplate changes at L3-4 and L4-5 levels. Dictated by: Leonel Bermudez M.D. on 04/23/2022 at 10:28 Approved by: Leonel Bermudez M.D. on 04/23/2022 at 10:34
== END ==
PROVIDERS: Family Provider Family Medicine; PCP Family Medicine; Referring Provider Family Medicine; Visit Provider Family Medicine
DX: R52 Pain, unspecified (principal)
CPT/HCPCS: 72100

== ENCOUNTER → 2022-07-15 12:31 | Outpatient (CLI) | payer OTHER, SELFPAY ==
--- NOTE | 2022-07-15 12:56 | DI.MRI.S_ITS ---
PROCEDURE: MR LUMBAR SPINE WO CON INDICATIONS: Radiculopathy, lumbar region TECHNIQUE: Noncontrast sagittal T1 spin echo and T2 fast echo, sagittal STIR, and T2 fast spin echo through the lumbar spine. In cases with scoliosis, additional coronal T2 fast spin echo may be performed. COMPARISON: [facility], CR, XR LUMBAR SPINE 2-3V, 04/23/2022, 9:35. FINDINGS: Image quality: Excellent. Alignment and Curvature: There is normal bony alignment. Bone Marrow: Marrow is of normal overall signal. No acute vertebral body compression fractures. Spinal Cord: Conus medullaris terminates at the L1-L2 level. Visualized cord demonstrates normal signal and size. Paraspinous Soft Tissues: No paravertebral masses. T12-L1: No canal stenosis or foraminal stenosis. L1-L2: Minimal disc bulge. No canal stenosis or foraminal stenosis. L2-L3: Minimal disc bulge. No canal stenosis or foraminal stenosis. L3-L4: Minimal disc bulge. No canal stenosis or foraminal stenosis. L4-L5: Minimal disc bulge. No canal stenosis or foraminal stenosis. L5-S1: Bilateral facet hypertrophy. Mild disc bulge. No canal stenosis or foraminal stenosis. IMPRESSION: 1. No canal stenosis or foraminal stenosis. 2. Multilevel disc bulges. 3. Facet hypertrophy at L5-S1. Dictated by: Chester Huffman M.D. on 07/15/2022 at 18:14 Approved by: Chester Huffman M.D. on 07/15/2022 at 18:18
== END ==
PROVIDERS: Family Provider Family Medicine; PCP Family Medicine; Referring Provider Family Medicine; Visit Provider Family Medicine
DX: M51.17 Intervertebral disc disorders with radiculopathy, lumbosacral region (principal); M47.27 Other spondylosis with radiculopathy, lumbosacral region
CPT/HCPCS: 72148

== ENCOUNTER 2023-09-02 08:14 | Day surgery (SDC) | payer OTHER, SELFPAY ==
[2023-09-02 08:32] VITALS: BP 112/79; PULSE 68; RESP 17; TEMP 36.6; O2SAT 98
[2023-09-02] MEDS: LACTATED RINGERS 1,000 ML 42 ML IV (08:37)
--- NOTE | 2023-09-02 09:01 | PM.HP.1 ---
History of Present Illness History of Present Illness Date Patient Seen: 09/02/23 Time Patient Seen: 09:01 Chief complaint: Screening Colonoscopy Narrative: 48-year-old woman no previous colonoscopy here for screening colonoscopy. No family history of intestinal malignancy. No abdominal concerns today. [facility] Medical History delivery delivered (~2005) Social History Smoking Status: Former smoker alcohol intake: never Meds Home Medications and Allergies Home Medications Medication Instructions Recorded Confirmed Type osomsuartta-T-Vwlhrhdrsltjdkgxce 2 tab PO DAILY 09/01/23 09/01/23 History 500 mg-200 mg tablet ibuprofen 200 mg tablet 600 mg PO Q6H 09/01/23 09/02/23 History lactobacillus combination no.4 3 09/01/23 History billion cell capsule (Probiotic) omega 3-tai-ygd-fish oil 300 3 cap PO DAILY 09/01/23 09/01/23 History mg-1,000 mg capsule (Fish Oil) peg 3350-electrolytes 236 240 ml PO Q10M #4,000 mL 09/01/23 Rx gram-22.74 gram-6.74 gram-5.86 gram solution (Golytely) vits 75-iron 28 mg-folic 1 PO 09/01/23 History acid 800 mcg-omega-3 oral combo pack sertraline 50 mg tablet 50 mg PO DAILY 09/01/23 09/01/23 History Allergies Allergy/AdvReac Type Severity Reaction Status Date / Time sulfamethoxazole Allergy Intermediate Verified 09/02/23 08:30 [From Bactrim] trimethoprim [From Bactrim] Allergy Intermediate Verified 09/02/23 08:30 nitrofurantoin Allergy Mild Headache Verified 09/02/23 08:31 [From Macrobid] morphine AdvReac Intermediate Vomiting Verified 09/02/23 08:28 Exam Vital Signs (past 8 hours): - 09/02/23 08:32 Temperature 98 F Pulse Rate 68 Respiratory Rate 17 Blood Pressure 112/79 Pulse Oximetry 98 Oxygen Delivery Method Room Air Oxygen Delivery Method Room Air Narrative Exam Narrative: General adult woman alert oriented no acute distress Chest nonlabored respiration Extremities warm well perfused Assessment & Plan Assessment & Plan narrative: The patient requires colorectal screening and colonoscopy is recommended. Technical details were discussed. Risks, benefits, alternatives explained. Risks including but not limited to myocardial infarction, aspiration, bleeding, pain, missed lesion, incomplete examination, need for further radiographic studies, colonic perforation, and need for major abdominal surgery were discussed. All questions were answered to their satisfaction, and they are in agreement with this plan.
--- NOTE | 2023-09-02 09:04 | P.OP.COLON_ITS ---
Operative Date/Time/Diagnoses Date of procedure: 09/02/23 Time of procedure: 09:05 Pre-op diagnosis: Colorectal screening Procedure & Clinicians Study performed: Colonoscopy Same procedure as scheduled: Yes Indications: Colorectal screening Surgeon: Ernie Gonzalez Procedure Notes Procedure in detail: The history and physical was performed/updated and the patient is ASA class is 2. The procedure was discussed in detail with the patient. Potential risks complications including infection, bleeding, missed diagnosis, perforation, need for surgery, and were explained. Their questions were answered and informed consent was obtained. Patient was brought to the procedure room and placed standard monitoring equipment. The patient's vital signs were monitored continuously throughout the entire procedure. Prior to starting time-out was performed. The patient was placed in the left lateral recumbent position. Procedural sedation was administered by anesthesia. Examination began with a thorough inspection of the perianal area there was no evidence of fissures, fistulae, external hemorrhoids or cutaneous malignancy. The colonoscopy scope was then placed into the anal canal and was advanced to the cecum, which was identified by the ileocecal valve , the appendiceal orifice and the confluence of the taenia. The scope was then slowly withdrawn examining colon thoroughly in all directions, irrigating it of any residual stool. The scope was retroflexed within the rectum The patient tolerated the procedure well. They will be discharged once criteria are met. The prep was of good/excellent quality. The withdrawl time was 7 minutes. FINDINGS * Unremarkable colonoscopy. Normal healthy colonic mucosa without masses polyps or inflammation. * Grade 1 internal hemorrhoids Impression: Normal colonoscopy Post-procedure Recommendations: Colonoscopy in 10 years Disposition: same day surgery
[2023-09-02 09:31] VITALS: BP 96/67; PULSE 63; RESP 19; TEMP 36.4; O2SAT 97
[2023-09-02 09:34] VITALS: BP 104/71; PULSE 57; RESP 13; O2SAT 98
[2023-09-02 09:38] VITALS: BP 113/73; PULSE 66; RESP 11; TEMP 36.9; O2SAT 98
== END 2023-09-02 09:52 | disposition home or self-care (01) ==
PROVIDERS: Family Provider Family Medicine; PCP Family Medicine; Referring Provider Surgery; Visit Provider Surgery
PROC: 0DJD8ZZ Inspection of Lower Intestinal Tract, Via Natural or Artificial Opening Endoscopic (ICD-10-PCS; CPT 45378; principal; 2023-09-02 09:15)
DX: Z12.11 Encounter for screening for malignant neoplasm of colon (principal); K64.8 Other hemorrhoids
CPT/HCPCS: 45378; J2704

== ENCOUNTER → 2024-09-21 17:41 | Outpatient (CLI) | payer OTHER, SELFPAY ==
--- NOTE | 2024-09-21 17:43 | DI.MG.S_ITS ---
MM screening mammo BI: 09/21/2024. BI-RADS: 1 CLINICAL: 49-year old female for bilateral screening mammogram. Tyrer-Cuzick lifetime risk of 15.7%. Current reported family history of breast cancer: mother. PRIOR EXAMS 03/12/2021, 01/05/2020, 12/03/2018, 11/26/2017. MAMMOGRAPHY TECHNIQUE: 2D and 3D (tomosynthesis) digital mammographic views obtained, with additional images as needed for full coverage. Current study was also evaluated with a Computer Aided Detection (CAD) system. DENSITY C. The breasts are heterogeneously dense, which may obscure small masses. MAMMOGRAPHY FINDINGS Bilateral: No suspicious mass, asymmetry, microcalcification, or other abnormality seen. No significant change from comparison. IMPRESSION: * No evidence of malignancy. RECOMMENDATIONS Bilateral * Annual screening mammography. OVERALL ASSESSMENT CATEGORY BI-RADS-1: Negative. The [employer] recommends annual screening mammography beginning at age 40 for women with average risk of breast cancer. ELECTRONICALLY SIGNED: Bette Dominguez M.D. on 09/22/2024 at 08:47:26 AM PT Interpreting Station ID: [id number]
== END ==
PROVIDERS: Family Provider Family Medicine; PCP Family Medicine; Referring Provider Family Medicine; Visit Provider Family Medicine
DX: Z12.31 Encounter for screening mammogram for malignant neoplasm of breast (principal); Z80.3 Family history of malignant neoplasm of breast; R92.333 Mammographic heterogeneous density, bilateral breasts
CPT/HCPCS: 77063; 77067